=== PATIENT | female | born 1970 | race Caucasian/White ===

== ENCOUNTER 2022-05-03 06:15 | Day surgery (SDC) | payer OTHER ==
[2022-04-29 17:40] VITALS: BMI 44.4
[2022-05-03] MEDS ORDERED: BUPIVACAINE HCL/PF 2.5 MG/ML - 30 ML VIAL IJ ONE (07:08)
[2022-05-03] MEDS ORDERED: FENTANYL CITRATE/PF 50 MCG/ML VIAL ONE ×3 (07:23→08:37)
[2022-05-03] MEDS ORDERED: ceFAZolin SODIUM 1 GM VIAL ONE (07:47)
[2022-05-03] MEDS ORDERED: ONDANSETRON 4 MG/2 ML VIAL ONE ×2 (07:51→08:48)
[2022-05-03] MEDS ORDERED: DEXAMETHASONE SOD PHOSPHATE 4 MG/1 ML VIAL ONE (07:51)
[2022-05-03] MEDS ORDERED: oxyCODONE HCL 5 MG TABLET PO PRN (08:24)
[2022-05-03] MEDS ORDERED: ACETAMINOPHEN 1000 MG/100 ML BAG IVPB PRN (08:24)
[2022-05-03] MEDS ORDERED: ONDANSETRON 4 MG/2 ML VIAL IVPUSH PRN (08:24)
[2022-05-03] MEDS ORDERED: LACTATED RINGERS SOLUTION 1,000 ML IV SCH (08:30)
[2022-05-03] MEDS ORDERED: oxyCODONE HCL 5 MG TABLET ONE (09:14)
[2022-05-03] MEDS ORDERED: traMADol HCL 50 MG TABLET ONE (09:26)
[2022-05-03] MEDS ORDERED: traMADol HCL 50 MG TABLET PO ONE (09:30)
[2022-05-03 09:43] VITALS: RESP 18; TEMP 97.8
[2022-05-03 10:08] VITALS: BP 132/78; PULSE 84
== END 2022-05-03 10:08 | disposition home or self-care (01) ==
LOC: FASU 06:15
PROVIDERS: ATTEND Orthopaedic Surgery
PROC: 0SBC4ZZ Excision of Right Knee Joint, Percutaneous Endoscopic Approach (ICD-10-PCS; 2022-05-03)
PROC: 0SBC4ZZ Excision of Right Knee Joint, Percutaneous Endoscopic Approach (ICD-10-PCS; principal; 2022-05-03 07:50)
DX: S83.241A Other tear of medial meniscus, current injury, right knee, initial encounter (principal); S83.281A Other tear of lateral meniscus, current injury, right knee, initial encounter; S83.8X1A Sprain of other specified parts of right knee, initial encounter; M65.861 Other synovitis and tenosynovitis, right lower leg; X58.XXXA Exposure to other specified factors, initial encounter; Y93.9 Activity, unspecified; Y92.9 Unspecified place or not applicable
CPT/HCPCS: 94760